=== PATIENT | male | born 1935 | race Caucasian/White ===

== ENCOUNTER 2022-08-13 22:04 | Emergency (ER) | payer OTHER ==
[~2022-08-13] VITALS: Ht 177.8 cm; Wt 72.6 kg
--- NOTE | 2022-08-13 22:13 | NUR ---
BIBRA 89 FROM HOME C/O HYPOTENSIVE 84/40 EALIER, DIARRHEA, AND N/V. 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 A/OX4. TOLERATING R/A WELL WITH NO RESP DISTRESS. AMBULATORY WITH STEADY GAIT. SAFETY MEASURES IN PLACE.
--- NOTE | 2022-08-13 22:25 | NUR ---
DR BONI INTERIANO AT PT'S BEDSIDE
--- NOTE | 2022-08-13 22:41 | NUR ---
EMT AT PT'S BEDSIDE FOR EKG
--- NOTE | 2022-08-13 22:50 | NUR ---
PT TAKEN TO CT VIA [facility]
--- NOTE | 2022-08-13 23:01 | NUR ---
PT RETURNED TO ER BED [address]
--- NOTE | 2022-08-13 23:17 | NUR ---
BLOOD COLLECTED AND SENT TO LAB
--- NOTE | 2022-08-13 23:25 | NUR ---
, ZENOBIA: [phone]
[2022-08-13 23:32] LABS: BASOPHILS % (AUTO) 0.2 % (0.0-2.0); EOSINOPHILS % (AUTO) 0.9 % (0.0-6.0); HEMATOCRIT 40 % (39-51); HEMOGLOBIN 13.5 g/dL (13.5-17.5); LYMPHOCYTES # (AUTO) 0.5 K/uL (0.8-4.8); MEAN CORPUSCULAR HGB CONC 33 g/dl (31.0-36.0); MEAN CORPUSCULAR VOLUME 94 fL (80-96); MONOCYTES # (AUTO) 0.7 K/uL (0.1-1.30); NEUTROPHILS # (AUTO) 8.3 K/uL (1.8-8.9); NEUTROPHILS % (AUTO) 86.9 % (43.0-81.0); PLATELET COUNT (AUTO) 138 K/uL (150-450); RED BLOOD CELL COUNT(AUTO) 4.28 MIL/uL (4.5-6.0); WHITE BLOOD COUNT (AUTO) 9.5 K/uL (4.3-11.0)
[2022-08-13 23:45] LABS: CARBON DIOXIDE 30 mmol/L (21-32); CHLORIDE 108 mmol/L (98-107); CREATININE 1.5 mg/dL (0.6-1.3); GLUCOSE 124 mg/dL (74-106); POTASSIUM 4.1 mmol/L (3.5-5.1); SODIUM SERUM 141 mmol/L (136-145); UREA NITROGEN, BLOOD 28 mg/dL (7-18)
[2022-08-13 23:57] LABS: ALANINE AMINOTRANSFERASE 13 U/L (12-78); ALKALINE PHOSPHATASE 54 U/L (46-116); ASPARTATE AMINOTRANSFERASE 13 U/L (15-37); BILIRUBIN,DIRECT 0.1 mg/dL (0.0-0.2); BILIRUBIN,TOTAL 0.4 mg/dL (0.2-1.0); TOTAL PROTEIN, SERUM 5.9 g/dL (6.4-8.2)
[2022-08-14] MEDS ORDERED: IV NS 0.9% 1,000 ML BAG IV ONE
--- NOTE | 2022-08-14 00:28 | NUR ---
CALLED [facility] TO ARRANGE TRANSFER PT BACK HOME
--- NOTE | 2022-08-14 00:30 | NUR ---
DR. BONI INTERIANO ON PHONE CALL WITH MELODY STAHL MD
--- NOTE | 2022-08-14 00:45 | NUR ---
[facility] ETA: [id number]
--- NOTE | 2022-08-14 01:30 | NUR ---
[facility] BYPRODUCT THE PT
--- NOTE | 2022-08-14 01:33 | NUR ---
MADE AWARE OF PT'S CONDITION AND REGULATORY TECHNICIAN SITUATION
--- NOTE | 2022-08-14 01:36 | NUR ---
IV removed. Catheter intact and site benign. Pressure and 4x4 applied to site. No bleeding noted.
--- NOTE | 2022-08-14 01:37 | NUR ---
[facility] DC PT TO HOME. VSS.
[2022-08-14 01:39] VITALS: BP 95/57
== END 2022-08-14 01:41 | disposition home or self-care (01) ==
LOC: ER 22:26
DX: R19.7 Diarrhea, unspecified (principal); R51.9 Headache, unspecified; I50.9 Heart failure, unspecified; E78.00 Pure hypercholesterolemia, unspecified
CPT/HCPCS: 99285; 96360; 70450; 71045; 93005; 73080; 85025; 80048; 80076; 36415; 84484; 83880; J7030